=== PATIENT | male | born 1970 | race Caucasian/White ===

== ENCOUNTER 2020-04-23 18:17 | Emergency (ER) | payer SELFPAY ==
[2020-04-23] MEDS ORDERED: Lidocaine 1% 20 ML MDV ONE (18:55)
[2020-04-23] MEDS ORDERED: Lidocaine 1% w/Epinephrine 1:100K 20 ML VIAL ONE (18:55)
--- NOTE | 2020-04-23 19:05 | CT ---
CT OF CERVICAL SPINE PERFORMED WITHOUT CONTRAST ENHANCEMENT: 04/23/20 HISTORY: Neck injury. The vertebral bodies are normal in height. There is slight reversal of the normal cervical curve cent ered at the C3-4 level with disc space narrowing more anterior. The facets are in fairly normal align ment. There is some motion artifact which does degrade detail. I do not see any signs of canal or for aminal stenosis and no CT evidence for fracture. Findings also reviewed with Dr. Cabrera who agrees. IMPRESSION: No CT evidence of fracture of the cervical spine. POS: ANAID
--- NOTE | 2020-04-23 19:07 | CT ---
HEAD CT WITHOUT CONTRAST: 04/23/20 HISTORY: Head trauma. COMPARISON: None. FINDINGS: No parenchymal hemorrhage. No extra-axial hematoma. No midline shift. Basilar cisterns are patent. Brain volume is age appropriate. Cortical fairbanks-white matter differentiation is preserved. No hydrocephalus. Calvarium is intact. There is a hematoma involving the scalp, near the vertex. Overlying bandage mate rial is identified. IMPRESSION: 1. Scalp hematoma, near the vertex. 2. No intracranial posttraumatic sequela. POS: PPP
[2020-04-23] MEDS ORDERED: Bacitracin 1 PK ONE (19:36)
[2020-04-23] MEDS ORDERED: Boostrix 0.5 ML (Tdap) VIAL ONE ×2 (19:36→19:54)
[2020-04-23] MEDS ORDERED: Cephalexin 500 MG CAP ONE (19:36)
== END 2020-04-23 20:00 | disposition home or self-care (01) ==
LOC: MADERS 18:17
DX: S01.01XA Laceration without foreign body of scalp, initial encounter (principal); Z79.82 Long term (current) use of aspirin; W20.8XXA Other cause of strike by thrown, projected or falling object, initial encounter
CPT/HCPCS: 70450; 72125; 90715

== ENCOUNTER 2022-11-25 16:20 | Emergency (ER) | payer SELFPAY ==
[2022-11-25] MEDS ORDERED: Sodium Chloride 0.9% 1,000 ML ONE (17:05)
[2022-11-25] MEDS ORDERED: Pantoprazole 40 MG VIAL ONE (17:05)
[2022-11-25] MEDS ORDERED: Ondansetron PF 4 MG/2 ML Vial ONE (17:05)
[2022-11-25 17:26] LABS: ALT (SGPT) 9 U/L (8-55); AST (SGOT) 11 U/L (5-34); Albumin 3.7 g/dL (3.5-5.0); Alkaline Phosphatase 69 U/L (40-110); Anion Gap 13 mmol/L (10-20); BUN (Urea Nitrogen) 16 mg/dL (8.4-25.7); Bilirubin, Total 0.6 mg/dL (0.2-1.2); Calc. Creatinine Clearance 0 mL/min (70-130); Calcium 9.3 mg/dL (7.8-10.44); Carbon Dioxide 23 mmol/L (22-29); Chloride 108 mmol/L (98-107); Estimated GFR 106; Globulin 2.9 g/dL (2.4-3.5); Glucose 99 mg/dL (70-105); Lipase 13 U/L (8-78); Potassium 3.6 mmol/L (3.5-5.1); Protein, Total 6.6 g/dL (6.0-8.3); Sodium 140 mmol/L (136-145)
[2022-11-25 17:34] LABS: Band 6 % (5-11); Eosinophils 13 % (0-10); Hematocrit 41.6 % (42.0-52.0); Hemoglobin 13.7 g/dL (14.0-18.0); Lymphocytes 5 % (21-51); MDiff Complete? YES; Mean Corpuscular Hemoglobin 28.1 pg (27.0-31.0); Mean Platelet Volume 8.2 fL (7.4-10.4); Monocytes 1 % (0-10); Neutrophil 75 % (42-75); Platelet Adequacy Comment Appears Adequate; Platelet Count 238 10x3/uL (130-400); RBC Distribution Width 13.4 % (11.5-14.5)
[2022-11-25 17:40] LABS: Troponin I 0.011 ng/mL (< 0.028)
[2022-11-25 18:00] LABS: Bilirubin Negative (Negative); Blood, Urine Negative (Negative); Clarity Clear (Clear); Glucose, Urine (Dipstick) Negative (Negative); Ketone, Urine Negative (Negative); Leukocyte Negative (Negative); Nitrite Negative (Negative); Protein, Urine (Dipstick) Negative (Neg-Trace); Urobilinogen 0.2 mg/dL (Less than 2)
[2022-11-25 18:10] LABS: Bacteria/HPF Rare-Few HPF (None Seen); CAUTI Indications for Culture Pelvic or flank pain; Mucous/LPF Few LPF (<2+); RBC/HPF None Seen HPF (0-3); Squamous Epithelial 0-3 HPF (0-3); Urine Culture Reflex No No; WBC/HPF None Seen HPF (0-3)
[2022-11-25 18:12] LABS: Amphetamine Not Detected (NotDetected); Barbiturates Screen Not Detected (NotDetected); Benzodiazepine Screen Not Detected (NotDetected); Cocaine Metabolite Screen Not Detected (NotDetected); Methadone Not Detected (NotDetected); Methamphetamine Detected (NotDetected); Opiate Screen Not Detected (NotDetected); Oxycodone Screen Not Detected (NotDetected); Phencyclidine (PCP) Not Detected (NotDetected); THC/Cannabinoid Screen Not Detected (NotDetected); Tricyclic Screen Not Detected (NotDetected)
== END 2022-11-25 18:55 | disposition home or self-care (01) ==
LOC: MADERS 16:20
DX: R07.89 Other chest pain (principal); R11.0 Nausea; E86.0 Dehydration; T67.5XXA Heat exhaustion, unspecified, initial encounter
CPT/HCPCS: 71045; 80053; 80306; 81001; 83690; 84484; 85025; 93005; 96361; 96374; 96375; C9113; J2405; J7050